=== PATIENT | female | born 1940 | race Caucasian/White ===

== ENCOUNTER 2021-10-31 11:36 | Day surgery (SDC) | payer MEDICARE, OTHER ==
[~2021-10-31] VITALS: Ht 162.6 cm; Wt 68.0 kg
[~2021-10-31 11:36] MED LIST: ACET-704 PO; ANTI10DR7 EACH EAR; ASPI-482 PO; BIOF1000 MC; CALC-31 PO; CHLORHEXIDINE 0.12% 15 ML MOUTHWASH. SWSP PRN; CLOT15CR23 TP; DIPH25CA58 PO; ELEC1000 PO; FLUT16SP2 NS; FLUV100T16 PO; FURO-68 PO; GLUC1CAP48 PO; HYDROmorphone 2 MG/ML INJ. IVP PRN; IBUP200C PO; IV RINGERS,LACTATED 1000ML 1,000 ML IV SCH; LORA0.5T96 PO; LORA10CA PO; MECL-75 PO; MORPHINE SULFATE 2 MG/ML INJ. IVP PRN; MULT-496 PO; OXYM30SP67 NS; POLY2500 MC; POTA10TA12 PO; PROCHLORPERAZINE 10 MG/2 ML VIAL. IVP PRN; PROM25AM6 IJ; QUET25TA5 PO; SENN8.8S13 PO; TRIA15CR3 TP; ZOST1940 SQ; [UNRECOGNIZED DRUG - OTHER]; ceFAZolin SODIUM IV Push 1 GM VIAL. IVP PRN; fentaNYL PF VIAL 100 MCG/2 ML VIAL IVP PRN
[2021-10-31] MEDS ORDERED: LIDOCAINE 1% PF 5 ML VIAL. ONE (11:42)
[2021-10-31] MEDS ORDERED: PROPOFOL 10 MG/ML (20ML) VIAL. IV ONE (11:42)
[2021-10-31] MEDS ORDERED: ROCURONIUM 50 MG/5 ML VIAL. ONE (11:42)
[2021-10-31] MEDS ORDERED: DEXAMETHASONE SOD PHOS 4 MG/ML VIAL ONE ×3 (11:43→14:00)
[2021-10-31] MEDS ORDERED: ONDANSETRON PF 4 MG/2 ML VIAL. ONE (11:43)
[2021-10-31] MEDS ORDERED: fentaNYL PF VIAL 100 MCG/2 ML VIAL ONE (11:46)
[2021-10-31 12:01] VITALS: BP 163/124
[2021-10-31] MEDS ORDERED: SUCCINYLCHOLINE 200 MG/10 ML VIAL. ONE (12:18)
[2021-10-31] MEDS ORDERED: BUPIVACAINE-EPI 0.5% 30 ML VIAL KIT. ONE (13:16)
[2021-10-31] MEDS ORDERED: GELATIN SPONGE SIZE 100. ONE (13:16)
[2021-10-31] MEDS ORDERED: CHLORHEXIDINE 0.12% 15 ML MOUTHWASH. ONE (13:16)
[2021-10-31] MEDS ORDERED: ePHEDrine PF IN SALINE 50 MG/10 ML SYRINGE. IV ONE (13:54)
[2021-10-31] MEDS ORDERED: NEOSTIGMINE METHYLSULFATE 5 MG/5 ML SYRINGE. ONE (13:55)
[2021-10-31] MEDS ORDERED: GLYCOPYRROLATE 1 MG/5 ML VIAL. ONE (13:55)
[2021-10-31] MEDS ORDERED: GELATIN SPONGE SIZE 12-7MM SPONGE. TP ONE (14:01)
[2021-10-31] MEDS ORDERED: BUPIVACAINE-EPI 0.5% 30 ML VIAL KIT. INJ ONE (14:01)
[2021-10-31] MEDS ORDERED: VANCOMYCIN 1 GM VIAL. TP ONE (14:01)
[2021-10-31] MEDS ORDERED: GELATIN SPONGE SIZE 12-7MM SPONGE. ONE (14:04)
[2021-10-31] MEDS ORDERED: VANCOMYCIN 1 GM VIAL. ONE (14:13)
--- NOTE | 2021-10-31 15:21 | PDOC4 ---
OPERATIVE NOTE Date: Date: Oct 31, 2021 Pre-Op Diagnosis: Dementia carious, fractured, non restorable teeth # 3,10,13, 30 Post-Op Diagnosis: Dementia carious, fractured, non restorable teeth # 3,10,13, 30 ADDING # 2, & 5 Procedure Performed: Extraction of non restorable teeth # 2,3,5,10,13,30 Surgeon: елена Anesthesia Type: [place] Blood Loss: 20 Specimans Obtained: teeth disposed of in OR no specimens sent Findings: see dictation carious, fractured, non restorable teeth # 3,10,13, 30, 2, 5, Complications: none CORBIN SYED DMD Oct 31, 2021 15:21
[2021-10-31] MEDS ORDERED: HYDR-2761 PO (15:53)
[2021-10-31] MEDS ORDERED: CHLO15MO2 PO (15:58)
[2021-10-31] MEDS ORDERED: HYDROcodone/APAP 5/325MG 1 TAB TABLET PO ONE (16:00)
[2021-10-31 16:30] VITALS: BP 120/44
--- NOTE | 2021-10-31 16:44 | OP ---
DATE OF SURGERY: 10/31/2021 OPERATING SERVICE: elementary science teacher. ATTENDING PHYSICIAN: Shaan Evangelista DMD, MD DICTATION #: [id number]. PREOPERATIVE DIAGNOSES: 1. Dementia. The patient does not allow you to reach inside her mouth for exam. 2. She has caries and fractured teeth in her mouth. POSTOPERATIVE DIAGNOSES: 1. Dementia. The patient does not allow you to reach inside her mouth for exam. 2. She has caries and fractured teeth in her mouth. Teeth ultimately are #2, 3, 5, 10, 13, and 30. BRIEF HISTORY: The patient was referred to our clinic from [facility] for evaluation and management of teeth that were deemed to be nonrestorable that were fractured or otherwise grossly carious. Brief exam in our clinic revealed that she is not willing to undergo oral exam or x-rays. We performed history and physical to the best of her abilities using patient's limited cooperation, preoperative records and consultation with her provider. Permit was obtained with power of corporate associate attorney and discussion was made for management as best as possible in the OR operative setting. DRAINS PLACED: None. ESTIMATED BLOOD LOSS: Approximately 20 mL. SPECIMEN SENT: None. Teeth were disposed of in the OR. COMPLICATIONS: None noted at the time of surgery. OPERATIVE DESCRIPTION: After the history and physical was updated in the preoperative holding area, the patient was transported by the anesthesia service to the operating suite and placed in the supine position. General anesthesia was induced. Timeout was initiated. All perioperative staff was in agreeance. A moistened throat pack was placed and logged. The patient was prepped and draped in normal sterile fashion. The surgery began with administration of approximately 20 mL of 0.5% bupivacaine and 1:200,000 epinephrine. An additional 10 mL were administered approximately one hour later without complication to allow for patient comfort and continued anesthesia while the patient is in the PACU and being discharged. Surgery began with placement of a bite block and a 15 blade was utilized to make a full-thickness mucoperiosteal flap at sites #3, 10, 13 and 30. Full-thickness mucoperiosteal flap was reflected it was found that tooth #2 was fractured and would require removal and tooth #5 had gross periodontal disease and had 2+ mobility and was deemed nonrestorable intraoperatively. Additional extension of the full-thickness mucoperiosteal flap was extended to include numbers tooth #2 and tooth #5 for management and removal of these teeth intraoperatively. Teeth were then luxated, elevated and extracted without complication, teeth numbers again 2, 3, 5, 10, 13 and 30 with hand instruments and rotary instrumentation as needed. Sites were then curetted and lavaged with copious normal sterile saline irrigation. The Gelfoam was placed in with the addition of some vancomycin powder and was oversewn with 3-0 chromic gut sutures in a running locked fashion on the upper right and multiple interrupteds over the selected teeth that were extracted. Oral cavity was then lavaged and suctioned. The moistened throat pack was removed. An OG was passed and the stomach was decompressed. This patient was then returned to the care of anesthesia where she was awakened and extubated without complication and transported to the PACU in stable condition. MATT DR: Maricruz TID: [id number]
== END 2021-10-31 17:40 | disposition home or self-care (01) ==
LOC: SURG 11:36
PROVIDERS: ATTEND Dentist Oral and Maxillofacial Surgery
DX: F03.90 Unspecified dementia, unspecified severity, without behavioral disturbance, psychotic disturbance, mood disturbance, and anxiety (principal); K02.63 Dental caries on smooth surface penetrating into pulp; K21.9 Gastro-esophageal reflux disease without esophagitis; M19.90 Unspecified osteoarthritis, unspecified site; F41.9 Anxiety disorder, unspecified; Z79.82 Long term (current) use of aspirin; Z79.899 Other long term (current) drug therapy; Z98.890 Other specified postprocedural states; Z88.2 Allergy status to sulfonamides; Z88.8 Allergy status to other drugs, medicaments and biological substances
CPT/HCPCS: 41899; A4209; A4930; J0330; J0690; J1100; J2405; J2704; J2710; J3010; J3370; J3490; 76000; A4657